=== PATIENT | male | born 1955 | race Caucasian/White ===

== ENCOUNTER 2018-02-19 09:42 | Outpatient (CLI) | payer MEDICAID, SELFPAY ==
--- NOTE | 2018-02-19 09:32 | DI.RAD_ITS ---
SYMPTOMS/DIAGNOSIS: RT SHOULDER PAIN RIGHT SHOULDER: Three views were obtained. There appears to be degenerative deformity of the glenoid and to a lesser degree the humeral head. The cartilaginous joint space not well evaluated on the projections obtained. 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 No other significant findings.
== END 2018-02-19 10:02 ==
PROVIDERS: PCP Emergency Medicine; Visit Provider Physician Assistant
DX: M25.511 Pain in right shoulder (principal); M19.011 Primary osteoarthritis, right shoulder
CPT/HCPCS: 73030

== ENCOUNTER → 2019-12-26 11:22 | Outpatient (BNVA) | payer MEDICARE, SELFPAY | PROVIDERS: PCP Emergency Medicine; Referring Provider Emergency Medicine; Visit Provider Student in an Organized Health Care Education/Training Program | DX: M75.81 Other shoulder lesions, right shoulder (principal) | CPT/HCPCS: 20610; 99213; J1040 ==

== ENCOUNTER 2020-12-14 21:49 | Emergency (ER) | payer MEDICARE, SELFPAY ==
[2020-12-14 21:55] VITALS: BP 168/102; PULSE 81; RESP 22; TEMP 36.7; O2SAT 97
--- NOTE | 2020-12-14 22:30 | DI.RAD_ITS ---
Exam(s) XR HAND LT COMPLETE EXAM: XR HAND LT COMPLETE CLINICAL HISTORY: attention 3,4,5 distal finger, lawnmower. TECHNIQUE: 2D digital imaging was performed. COMPARISON: No exams were available for comparison FINDINGS: BONES: There is an acute comminuted fracture involving the distal phalanx of the left ring finger. T he fracture appears to be intra-articular. There are displaced fracture fragments. There also densi ties in the soft tissues which may represent fracture fragments or foreign bodies. There is associat ed soft tissue swelling. There is a comminuted fracture involving the distal phalanx of the left middle finger with displaced fracture fragments. The fracture does appear to be intra-articular. There is associated soft tissue swelling. No bony destructive lesion is seen. JOINTS: No dislocation present. Degenerative changes are seen in the hand particularly at the interph alangeal joint of the thumb. SOFT TISSUE: There is soft tissue swelling of the 5th finger. IMPRESSION: Fractures involving the distal phalanges of the 3rd and 4th fingers as described. DATA REPOSITORY: RADIATION DOSE DELIVERED:
--- NOTE | 2020-12-14 22:41 | W.ED.GENAD ---
Discharge Plan Disposition Patient Disposition: HOME Condition: Good Discharge Details Clinical Impression: Contact with powered lawnmower as cause of accidental injury, Fracture of phalanx of left ring finger, Fracture of middle phalanx of left index finger, Finger laceration Primary Care Provider: Rocky Dickinson ED Provider: French Garcia Home Meds and New Rx's Prescriptions: New cephalexin 500 mg capsule 500 mg PO QID 7 Days Qty: 28 RF: 0 Continued ibuprofen 200 mg tablet 400 mg PO DAILY PRN RF: 0 terbinafine HCl 1 % cream 1 applic TP BID Qty: 30 RF: 0 amlodipine 5 mg tablet 5 mg PO DAILY 90 Days Qty: 90 RF: 3 lisinopril 10 mg tablet 10 mg PO DAILY Qty: 90 RF: 3 Discharge Instructions Instructions: Finger Fracture (ED), Finger Laceration (ED) Additional Instructions: At this time you have lacerated your fingers, severely damaged the nails, and also broke the ends of the bones in your ring and middle finger. One or both of your nails may fall off. All of the lacerations were sutured with absorbable sutures, and these will fall out on their own. The suture that was used to suture your nail back in place was a nonabsorbable suture and will need to be removed in 7 to 10 days. The tip of skin on your fifth digit will eventually fall off and as you chopped off most of it, however it will function as a good Band-Aid in the time being and allow for growth and rehealing from the inside out. Please take Tylenol and Motrin as needed for pain. Please take the Keflex antibiotic to help prevent infection. A [facility] Please keep the finger splint on at all times to allow for proper healing. You will need to follow-up closely with your primary care provider for reassessment. At this time there is no clear evidence of major nerve or tendon injury however reassessment is needed in the next few days to reevaluate after the swelling has gone down. If you notice any worsening of your symptoms, or any new symptoms such as vomiting, diarrhea, fever, chills, shortness of breath, chest pain, numbness, weakness, or fainting , please return immediately to the emergency department for reevaluation. Please follow up with your primary care provider as soon as possible for reassessment and reevaluation. As always, it was a pleasure participating in your medical care today. Referrals: Rocky Dickinson, DO [Primary Care Provider] - Medical Decision Making 65-year-old male presents today for evaluation of injury to his nondominant left hand. Patient states that he was mowing the lawn this evening, lifted up the mower and unfortunately the blades were still spinning at a high rate of speed. They clipped his fingers. He went home laid down watch some TV felt that he probably needed more definitive management and came to the ER for further assessment. Aside from pain in the tips of all the fingers, he denies any other complaints. Tetanus was last updated in 2018. The left hand demonstrates notable multiple irregular lacerations to the middle finger ring finger of the left hand as well as a tuft laceration to the fifth digit on the left hand. Surprisingly the patient is able to bend extremely well all aspects of the proximal mid and distal phalanges with isolation of each joint. Strength is intact. Sensation is clearly limited and diminished secondary to the notable injury pattern. No bone is visible. The ring finger nail is certainly been ripped out at the base. Middle finger nail appears to be relatively intact. X-ray reveals evidence of fracture of the third and fourth digit. Patient's lacerations were sutured although it was challenging due to the masticated nature of the distal fingertips, in addition to the notable amount of skin that was removed due to the nature of the injury. The nailbed of the third finger appears stable, but the fourth finger nailbed appears to be completely removed. It was reattached with suture. Doing the best with what was left of the fingers I was able to suture much of the skin flaps. The fifth digit demonstrated a notable flap that was cut, and this was resutured, however there is very little vascular supply left. This will function as a bandage, and I suspect this skin component will fall off in the end and heal through secondary intention. Patient's tetanus is up-to-date. Recommended patient follow-up very closely with his primary care provider for reassessment. At this time I see no evidence of tendon damage, as the patient demonstrates good flexion extension with no evidence of deficit, however although there was no sensory deficit noted on initial exam, it was slightly challenging due to the nature of the injury. I do feel that the patient would benefit from reassessment with close follow-up with his PCP. Discussed red flags which to return. We will give Keflex here, and a prescription to his pharmacy. I have extensively reviewed the treatment plan and discharge instructions with the patient. I have addressed all patient concerns at this time. The patient was made aware of what symptoms to monitor for that would warrant a return to the emergency department. Discussed the plan with the patient, they demonstrate verbal understanding and agreement with our assessment and plan at this time. The documentation in this chart was dictated using [employer] dictation software. Please excuse any dictation errors. HPI General Date/Time Provider Initiated Documentation: 12/14/20 21:49. HPI Narrative: 65-year-old male presents today for evaluation of injury to his nondominant left hand. Patient states that he was mowing the lawn this evening, lifted up the mower and unfortunately the blades were still spinning at a high rate of speed. They clipped his fingers. He went home laid down watch some TV felt that he probably needed more definitive management and came to the ER for further assessment. Aside from pain in the tips of all the fingers, he denies any other complaints. Tetanus was last updated in 2018. Related Data Home Medications Medication Instructions Recorded Confirmed ibuprofen 200 mg tablet 400 mg PO DAILY PRN tab 04/02/19 12/14/20 terbinafine HCl 1 % topical cream 1 applic TP BID #30 gm 06/25/20 12/14/20 amlodipine 5 mg tablet 5 mg PO DAILY 90 Days #90 tab-cap 11/20/20 12/14/20 lisinopril 10 mg tablet 10 mg PO DAILY #90 tab 11/20/20 12/14/20 cephalexin 500 mg PO QID 7 Days #28 cap 12/14/20 Previous Rx's Medication Instructions Recorded terbinafine HCl 1 % topical cream 1 applic TP BID #30 gm 06/25/20 amlodipine 5 mg tablet 5 mg PO DAILY 90 Days #90 tab-cap 11/20/20 lisinopril 10 mg tablet 10 mg PO DAILY #90 tab 11/20/20 cephalexin 500 mg PO QID 7 Days #28 cap 12/14/20 Allergies Allergy/AdvReac Type Severity Reaction Status Date / Time No Known Allergies Allergy Verified 12/14/20 22:05 General Stated Complaint: Laceration DESIRE: 3 Review of Systems All systems reviewed & are unremarkable except as noted in HPI and below [facility] Medical History Colon cancer screening Social History Smoking/Tobacco Use Status: Never Smoking risk assessment performed?: Yes Alcohol Intake: current Alcohol Intake frequency: a few times a week Alcohol type: hard liquor Drug use: Daily Substance use type: marijuana Do you feel safe at home: Yes Do you feel safe in your relationship?: Yes Exam Narrative Exam Narrative: 1.Const: Well-nourished, Well-developed, appearing stated age 2.Eyes: PERRL, no conjunctival injection, and symmetrical lids. 3.ENT: Atraumatic external nose and ears. Moist MM. Neck: Symmetric, trachea midline, No thyromegaly. 4.CVS: +S1/S2, No murmurs or gallops. Peripheral pulses 2+ and equal in all extremities. Brisk capillary refill in all extremities. 5.RESP: Unlabored respiratory effort. Clear to auscultation bilaterally. No wheezes rales or rhonchi 6.GI: Soft, Nontender/Nondistended, No hepatosplenomegaly. No guarding or rebound. 7.MSK: Patient's left hand demonstrates notable multiple irregular lacerations to the middle finger ring finger of the left hand as well as a tuft laceration to the fifth digit on the left hand. Surprisingly the patient is able to bend extremely well all aspects of the proximal mid and distal phalanges with isolation of each joint. Strength is intact. Sensation is clearly limited and diminished secondary to the notable injury pattern. No bone is visible. The ring finger nail is certainly been ripped out at the base. Middle finger nail appears to be relatively intact. 8.Skin: Multiple irregular lacerations to the tip of the third and fourth digit on the left hand, as well as a tuft laceration to the fifth digit. 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 Sensation grossly intact, no focal neurologic deficits. 10.Psych: (AAO) x3. Appropriate mood and affect Course Vital Signs Vital signs: Vital Signs Temperature 36.7 C 12/14/20 21:55 Pulse 81 12/14/20 21:55 Respiratory Rate 22 12/14/20 21:55 Blood Pressure 168/102 H 12/14/20 21:55 Pulse Oximetry 97 12/14/20 21:55 Temperature 36.7 C 12/14/20 21:55 Temperature Source Oral 12/14/20 21:55 Pulse 81 12/14/20 21:55 Respiratory Rate 22 12/14/20 21:55 Respiratory Effort Non-Labored 12/14/20 22:04 Blood Pressure 168/102 H 12/14/20 21:55 Blood Pressure Position Sitting 12/14/20 21:55 Pulse Oximetry 97 12/14/20 21:55 Oxygen Delivery Method Room Air 12/14/20 21:55 Oxygen Flow Rate 0 12/14/20 21:55 Pain Level 8 12/14/20 21:55 Procedures Laceration Laceration 1: Site: hand (middle finger) Side (If applicable): left Size (cm): 2 Description: stellate and flap Depth: simple, single layer Local Anesthetic: Lidocaine 1% Amount of anesthesia used (mL): 3 Pre-repair: wound explored, irrigated extensively and deep structures intact Skin layer closed with: other (chromic gut) Size (cm): 5-0 Number of sutures: 2 Technique: simple, interrupted Laceration 2: Site: hand (ring finger) Side (If applicable): left Size (cm): 2 Description: stellate Depth: simple, single layer Local Anesthetic: Lidocaine 1% Amount of anesthesia used (mL): 3 Pre-repair: wound explored and irrigated extensively Skin layer closed with: other (chromic gut) Size (cm): 5-0 Number of sutures: 3 Laceration 3: Site: hand (5th digit) Side (If applicable): left Size (cm): 2 Description: flap Depth: simple, single layer Local Anesthetic: Lidocaine 1% Amount of anesthesia used (mL): 3 Pre-repair: wound explored, irrigated extensively and deep structures intact Skin layer closed with: other (chromic gut) Size (cm): 5-0 Number of sutures: 5 Technique: simple, interrupted
[2020-12-14] MEDS: Cephalexin 500 MG CAP, 4 CAPS/BTL PO (23:25)
--- NOTE | 2020-12-15 00:03 | DI.VRAD_ITS ---
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 Views: 3 or more views. COMPARISON: No relevant prior studies available. FINDINGS: There are mildly comminuted fractures involving the distal phalanges of digits 3 and 4. There are several tiny radiopaque structures are could be bone fragments or foreign bodies. Significant soft tissue trauma noted. The fractures appear to be intra-articular. There is soft tissue swelling related to the 5th digit distally. Degenerative changes are seen worst at the 1st MCP. IMPRESSION: Presumably open fractures involving the 3rd and 4th distal phalanges appear to be intra-articular as well. Dictated and Authenticated by: Armando Cisneros MD. Ordering:ANGELINA Braswell MD
== END 2020-12-14 23:30 | disposition home or self-care (01) ==
PROVIDERS: Emergency Provider Student in an Organized Health Care Education/Training Program; PCP Emergency Medicine
DX: S62.633B Displaced fracture of distal phalanx of left middle finger, initial encounter for open fracture (principal); S62.635B Displaced fracture of distal phalanx of left ring finger, initial encounter for open fracture; W28.XXXA Contact with powered lawn mower, initial encounter
CPT/HCPCS: 12002; 99283; 73130; 99284

== ENCOUNTER → 2020-12-18 08:14 | Outpatient (BNVA) | payer MEDICARE, SELFPAY | PROVIDERS: PCP Emergency Medicine; Referring Provider Emergency Medicine | DX: S62.605A Fracture of unspecified phalanx of left ring finger, initial encounter for closed fracture (principal); S62.621A Displaced fracture of middle phalanx of left index finger, initial encounter for closed fracture; S61.219A Laceration without foreign body of unspecified finger without damage to nail, initial encounter; X58.XXXA Exposure to other specified factors, initial encounter | CPT/HCPCS: 99214 ==

== ENCOUNTER → 2020-12-25 10:27 | Outpatient (BNVA) | payer MEDICARE, SELFPAY | PROVIDERS: PCP Emergency Medicine; Referring Provider Emergency Medicine | DX: S62.635D Displaced fracture of distal phalanx of left ring finger, subsequent encounter for fracture with routine healing (principal); S62.651D Nondisplaced fracture of middle phalanx of left index finger, subsequent encounter for fracture with routine healing; S61.317D Laceration without foreign body of left little finger with damage to nail, subsequent encounter; W28.XXXD Contact with powered lawn mower, subsequent encounter | CPT/HCPCS: 99213 ==

== ENCOUNTER 2021-02-17 18:58 | Emergency (ER) | payer MEDICARE, SELFPAY ==
--- NOTE | 2021-02-17 19:00 | RT.EKG_ITS ---
APPROVED REPORT Exam: Resting ECG Reason for Exam: poisoning Patient Location: E HR:97 bpm ECG Measurements Heart Rate 97 AXIS WV 158 P 38 QRSd 68 QRS 35 QT 338 T 29 QTc 429 Conclusion Sinus rhythm...normal P axis, V-rate 60- 99 Probable left atrial enlargement...P >50mS, <-0.10mV V1
[2021-02-17 19:06] VITALS: BP 144/93; PULSE 102; RESP 22; TEMP 37.1; O2SAT 93
[2021-02-17 19:18] LABS: Abs Immature Grans 0.05 10^3/uL (0.0-0.06); Absolute Basophil Count 0.03 10^3/uL (0.0-0.2); Absolute Lymphocyte Count 1.37 10^3/uL (1.2-3.4); Absolute Neutrophil Count 11.15 10^3/uL (1.2-6.7); Basophils % 0.2; Eosinophils % 0.8; HCT 50.7 % (40.0-50.0); HGB 16.7 g/dL (13.5-17.5); Immature Grans % 0.4; Lymphocytes % 10.3; MCH 30.8 pg (27.0-33.0); MCHC 32.9 % (32.0-36.0); MCV 93.4 fL (80-95); MPV 10.7 fL (8.0-11.0); Monocytes % 4.5; Neutrophils % 83.8; Nucleated RBC 0 %; Platelet Count 198 10^3/uL (130-400); RBC 5.43 10^6/uL (4.36-5.78); RDW 12.1 % (11.8-14.1); RDW-SD 42.1 fL
[2021-02-17] MEDS: Ondansetron 4 MG/2 ML VIAL IVP (19:19)
[2021-02-17 19:21] LABS: Absolute Eosinophil Count 0.11 10^3/uL (0.0-0.7)
[2021-02-17 19:37] LABS: ALT 39 U/L (16-63); AST 27 U/L (15-37); Albumin 4.8 g/dL (3.4-5.0); Alkaline Phosphatase 91 U/L (46-116); Anion Gap 9.6 mmol/L (3-11); BUN 30 mg/dL (7-18); Bilirubin, Total 1.1 mg/dL (0.2-1.0); CO2 29.4 mmol/L (21.0-32.0); CREATININE 1.2 mg/dL (0.70-1.30); Chloride 103 mmol/L (98-107); Glucose 114 mg/dL (74-106); Magnesium 2.4 mg/dL (1.8-2.4); Potassium 3.7 mmol/L (3.5-5.1); Sodium 142 mmol/L (136-145); Total Protein 9.1 g/dL (6.4-8.2); Troponin I < 0.05 ng/mL (<0.06)
[2021-02-17] MEDS: Lactated Ringers 1,000 ML 1000 ML IV (19:49)
--- NOTE | 2021-02-17 19:55 | W.ED.GENAD ---
Discharge Plan Disposition Patient Disposition: AGAINST MEDICAL ADVICE Discharge Details Clinical Impression: Accidental poisoning from mushrooms and other fungi Primary Care Provider: Rocky Dickinson ED Provider: Gerhard Naranjo Home Meds and New Rx's Prescriptions: No Action ibuprofen 200 mg tablet 400 mg PO DAILY PRN RF: 0 amlodipine 5 mg tablet 5 mg PO DAILY 90 Days Qty: 90 RF: 3 lisinopril 10 mg tablet 10 mg PO DAILY Qty: 90 RF: 3 triamcinolone acetonide 0.1 % ointment 1 applic topical DAILY Qty: 80 RF: 0 terbinafine HCl 1 % cream 1 applic TP BID Qty: 30 RF: 0 Discharge Instructions Instructions: Against Medical Advice (ED) Additional Instructions: You are leaving AGAINST MEDICAL ADVICE. You may have life threatening or lifestyle modifying disease that would go undiagnosed and untreated. Please return to the emergency department at any time for further work-up and treatment as recommended. Please follow-up with your doctor. Call to schedule follow-up as soon as possible. Do not eat mushrooms that you find in the words. Only eat store-bought mushrooms. Referrals: Rocky Dickinson, DO [Primary Care Provider] - Medical Decision Making 65-year-old male here with nausea vomiting and loose stool that started about 3 to 4 hours after consuming a mushroom that he had forward in the [place]. Concern for accidental mushroom poisoning. Patient was given IV fluid bolus and Zofran IV. Screening EKG was reviewed and interpreted by me: Please see report, sinus at 97 bpm, probable left atrial enlargement, nondiagnostic. I called and spoke with [facility], discussed ED presentation course, they recommended checking LFTs observing for the next 4 hours and repeating LFTs to see if increase which would be concerning for amanita poisoning. Initial labs reviewed and nondiagnostic. Normal STs. I had a discussion with the patient about my diagnostic/treatment plan. Patient declines plan and wishes to leave against medical advise. I reiterated my concerns to the patient and explained the risks of leaving prior to completion of workup and treatment. I specifically emphasized the possibility of life-threatening or lifestyle modifying disease that would not be appropriately treated if they leave. Patient verbalized understanding of my concerns and the potential for life threatening or lifestyle modifying disease. Patient has capacity to make informed decision. I again explained my concerns and urged the patient to stay for treatment as outlined. Patient continued to refuse. I then discussed potential less ideal alternatives to diagnostic/treatment plan as outlines and patient refused. I recommended that he follow-up with primary care physician LYLE or return to the Emergency Department at any time for further treatment. HPI General Mode of arrival: ambulatory. Date/Time Provider Initiated Documentation: 02/17/21 19:02. Limitations to Documentation: no limitations. Information obtained by: patient. HPI Narrative: 65-year-old male here with nausea and vomiting. Patient notes nausea and vomiting started around 1630. He has had multiple episodes and continues to have nausea. He has also had associated loose stool. Patient notes he consumed a mushroom that he had foraged from the [place] that he thought was a bolitus at around 1300. He now thinks it was a poisonous mushroom. He does not have the much room with him. Related Data Home Medications Medication Instructions Recorded Confirmed ibuprofen 200 mg tablet 400 mg PO DAILY PRN tab 04/02/19 02/17/21 terbinafine HCl 1 % topical cream 1 applic TP BID #30 gm 06/25/20 02/17/21 amlodipine 5 mg tablet 5 mg PO DAILY 90 Days #90 tab-cap 02/17/21 02/17/21 lisinopril 10 mg tablet 10 mg PO DAILY #90 tab 02/17/21 02/17/21 triamcinolone acetonide 0.1 % 1 applic TOPICAL DAILY #80 g 02/17/21 02/17/21 topical ointment Previous Rx's Medication Instructions Recorded terbinafine HCl 1 % topical cream 1 applic TP BID #30 gm 06/25/20 amlodipine 5 mg tablet 5 mg PO DAILY 90 Days #90 tab-cap 02/17/21 lisinopril 10 mg tablet 10 mg PO DAILY #90 tab 02/17/21 triamcinolone acetonide 0.1 % 1 applic TOPICAL DAILY #80 g 02/17/21 topical ointment Allergies Allergy/AdvReac Type Severity Reaction Status Date / Time No Known Allergies Allergy Verified 02/17/21 19:21 General Stated Complaint: Nausea/Vomit/Diar DESIRE: 3 Review of Systems All systems reviewed & are unremarkable except as noted in HPI and below Constitutional Constitutional: Denies fever(s) Gastrointestinal Gastrointestinal: Reports as per HPI [facility] Medical History Colon cancer screening Social History Smoking/Tobacco Use Status: Never Smoking risk assessment performed?: Yes Alcohol Intake: current Alcohol Intake frequency: a few times a week Alcohol type: hard liquor Drug use: Never Substance use type: does not use Do you feel safe at home: Yes Do you feel safe in your relationship?: Yes Exam Const General: cooperative and no acute distress HENMT Mouth: moist mucous membranes Eyes Conjunctivae: normal conjunctivae Sclera: normal sclerae Pupils: PERRL Neck Neck: trachea midline and supple Resp Auscultation: clear to auscultation bilaterally, no rales, no rhonchi and no wheezes Cardio Rate: regular rate and not tachycardic Rhythm: regular rhythm GI Palpation: soft, not firm, no guarding, no masses, not rigid and nontender Skin General skin exam: no rashes or lesions noted Neuro General: patient alert, patient awake, patient oriented x3 and tone normal Extrem General: no edema Psych Appearance: grossly normal Mental Status: mental status grossly normal Course Vital Signs Vital signs: Vital Signs Temperature 37.1 C 02/17/21 19:06 Pulse 102 H 02/17/21 19:06 Respiratory Rate 22 02/17/21 19:06 Blood Pressure 144/93 H 02/17/21 19:06 Pulse Oximetry 93 02/17/21 19:06 Temperature 37.1 C 02/17/21 19:06 Pulse 102 H 02/17/21 19:06 Respiratory Rate 22 02/17/21 19:06 Respiratory Effort 02/17/21 19:09 Blood Pressure 144/93 H 02/17/21 19:06 Blood Pressure Position Sitting 02/17/21 19:06 Pulse Oximetry 93 02/17/21 19:06 Oxygen Delivery Method Room Air 02/17/21 19:06 Oxygen Flow Rate 0 02/17/21 19:06 Pain Level 5 02/17/21 19:06 Lab/Test Results Lab/Test Results: Laboratory Tests Range/Units 02/17/21 02/17/21 19:10 19:10 WBC (4.4-10.8) 10^3/uL 13.30 H RBC (4.36-5.78) 10^6/uL 5.43 Hgb (13.5-17.5) g/dL 16.7 Hct (40.0-50.0) % 50.7 H MCV (80-95) fL 93.4 MCH (27.0-33.0) pg 30.8 MCHC (32.0-36.0) % 32.9 RDW (11.8-14.1) % 12.1 Plt Count (130-400) 10^3/uL 198 MPV (8.0-11.0) fL 10.7 Immature Gran % 0.4 Neutrophils % 83.8 Lymphocytes % 10.3 Monocytes % 4.5 Eosinophils % 0.8 Basophils % 0.2 Nucleated RBC % % 0 Absolute Neutrophils (1.2-6.7) 10^3/uL 11.15 H Absolute Lymphocytes (1.2-3.4) 10^3/uL 1.37 Absolute Monocytes (0.1-0.8) 10^3/uL 0.60 Absolute Eosinophils (0.0-0.7) 10^3/uL 0.11 Absolute Basophils (0.0-0.2) 10^3/uL 0.03 Sodium (136-145) mmol/L 142 Potassium (3.5-5.1) mmol/L 3.7 Chloride (98-107) mmol/L 103 Carbon Dioxide (21.0-32.0) mmol/L 29.4 Anion Gap (3-11) mmol/L 9.6 BUN (7-18) mg/dL 30 H Creatinine (0.70-1.30) mg/dL 1.2 Estimated GFR/1.73 m2 (mL/min/1.73m2) >= 60.00 Glucose (74-106) mg/dL 114 H Calcium (8.5-10.1) mg/dL 10.0 Magnesium (1.8-2.4) mg/dL 2.4 Total Bilirubin (0.2-1.0) mg/dL 1.1 H AST (15-37) U/L 27 ALT (16-63) U/L 39 Alkaline Phosphatase (46-116) U/L 91 Troponin I (<0.06) ng/mL < 0.05 Total Protein (6.4-8.2) g/dL 9.1 H Albumin (3.4-5.0) g/dL 4.8 PAWSS Pt Consumed Any Amount of Alcohol Within the Last 30 days OR had positive AL Upon Admission: No
[2021-02-17 20:25] VITALS: BP 120/84; PULSE 88; RESP 20; TEMP 36.8; O2SAT 98
== END 2021-02-17 20:03 | disposition left against medical advice (07) ==
PROVIDERS: Emergency Provider Student in an Organized Health Care Education/Training Program; PCP Emergency Medicine
DX: T62.0X1A Toxic effect of ingested mushrooms, accidental (unintentional), initial encounter (principal); R11.2 Nausea with vomiting, unspecified; Z53.29 Procedure and treatment not carried out because of patient's decision for other reasons
CPT/HCPCS: 80053; 93005; 96361; 96374; 99284; 83735; 84484; 85025; 93010; 99283; J2405

== ENCOUNTER → 2021-03-05 08:21 | Outpatient (BNVA) | payer MEDICARE, SELFPAY | PROVIDERS: PCP Emergency Medicine; Referring Provider Emergency Medicine; Visit Provider Student in an Organized Health Care Education/Training Program | DX: M75.81 Other shoulder lesions, right shoulder (principal) | CPT/HCPCS: 20610; J1040 ==

== ENCOUNTER 2022-04-02 15:53 | Emergency (ER) | payer MEDICARE, SELFPAY ==
[2022-04-02 15:59] VITALS: BP 127/98; PULSE 108; RESP 16; TEMP 36.6; O2SAT 98
--- NOTE | 2022-04-02 16:00 | DI.RAD_ITS ---
Exam(s) XR FINGER LT LITTLE EXAM: XR FINGER LT LITTLE CLINICAL HISTORY: Laceration, R/O Fracture/Foreign body. TECHNIQUE: 2D digital imaging was performed. COMPARISON: CR,XR XR HAND LT COMPLETE from 12/14/2020 FINDINGS: 3 views There is a mildly displaced predominantly oblique but comminuted fracture of the tuft of the distal p halanx. No radiopaque foreign body. No air in the soft tissues. IMPRESSION: Comminuted tuft fracture of the distal phalanx.. DATA REPOSITORY: RADIATION DOSE DELIVERED:
--- NOTE | 2022-04-02 16:05 | ED.GENADUL_ITS ---
Discharge Plan Disposition Patient Disposition: HOME Condition: Stable Discharge Details Clinical Impression: Open fracture of distal phalanx of left little finger Primary Care Provider: Rodríguez Peck ED Provider: Viviane Hurtado Home Meds and New Rx's Prescriptions: New cephalexin 500 mg tablet 500 mg PO BID 10 Days Qty: 20 0RF No Action ibuprofen 200 mg tablet 400 mg PO DAILY PRN terbinafine HCl 1 % cream 1 applic TP BID Qty: 30 0RF amlodipine 5 mg tablet 5 mg PO DAILY 90 Days Qty: 90 2RF lisinopril 10 mg tablet 10 mg PO DAILY Qty: 90 2RF triamcinolone acetonide 0.1 % ointment 1 applic topical DAILY Qty: 80 0RF Rx Instructions: to affected area Discharge Instructions Instructions: Laceration (ED), Finger Fracture (ED) Additional Instructions: Please leave dressing on for the first 12 to 24 hours. You may wash under running soap and water in the shower once a day after that. Keep clean and dry. Allow to air dry at least 2 hours a day. Take the antibiotic twice daily with yogurt or probiotic as directed. Please follow-up with orthopedics to discuss the further treatment of the fracture of your finger. Please return sooner for any signs of infection including red streaks, drainage, swelling or any concerns. Please have the sutures removed in 7 to 10 days. Please take Tylenol or Ibuprofen with food every 4-6 hours as needed for pain and swelling. Referrals: Otilio Rodríguez MD [ [facility]YSICIAN] - 1 week Medical Decision Making 67-year-old male presents to the ER with chief complaint of left little finger laceration which occurred prior to arrival. Patient was using some cutting he has a laceration noted to the distal part of his pinky. It extends through his nail and nail bed around to the volar surface of digit. Bleeding is controlled with pressure. He does have distal sensation intact. 4 sided ring block performed 1% lidocaine with epi. Anesthesia achieved. Wound care provided by director of midwifery/staff midwife. X-ray ordered to rule out fracture versus foreign body. Will consider antibiotics due to the depth of the laceration and the mechanism. X-ray shows a distal tuft fracture, laceration is through the nail and the nail bed. 6 simple interrupted sutures placed. Patient was placed in a Xeroform gauze, tube dressing and aluminum splint. Instructed to follow-up with orthopedics. Discussed strict return instructions and signs of infection. There was some bleeding through the gauze prior to discharge Coban and pressure dressing applied. Bleeding controlled prior to discharge. Patient was given cephalexin 500 mg twice daily x10 days first dose given here in the department. This text was generated using [employer] dictation system, please disregard any oddities of phrase or misspellings. Imaging Data Radiologic Study: Imaging: X-Ray Radiologist's impression: FINDINGS: 3 views There is a mildly displaced predominantly oblique but comminuted fracture of the tuft of the distal phalanx. No radiopaque foreign body. No air in the soft tissues. IMPRESSION: Comminuted tuft fracture of the distal phalanx.. HPI General Mode of arrival: ambulatory . Date/Time Provider Initiated Documentation: 04/02/22 15:57 . Limitations to Documentation: no limitations . Information obtained by: patient, RN notes reviewed and old records reviewed . HPI Narrative: 67-year-old male presents to the ER with chief complaint of left little finger laceration which occurred prior to arrival. Patient was using some cutting he has a laceration noted to the distal part of his pinky. It extends through his nail and nail bed around to the volar surface of digit. Bleeding is controlled with pressure. He does have distal sensation intact. Last tetanus was 2017. He has no other complaints. Related Data Home Medications Medication Instructions Recorded Confirmed ibuprofen 200 mg tablet 400 mg PO DAILY PRN 04/02/19 04/02/22 triamcinolone acetonide 0.1 % 1 applic topical DAILY #80 grams 01/05/22 04/02/22 topical ointment amlodipine 5 mg tablet 5 mg PO DAILY 90 days #90 tab-caps 03/03/22 04/02/22 lisinopril 10 mg tablet 10 mg PO DAILY #90 tabs 03/03/22 04/02/22 terbinafine HCl 1 % topical cream 1 applic topical BID #30 grams 03/03/22 1 06/02/21 cephalexin 500 mg tablet 500 mg PO BID 10 days #20 tabs 04/02/22 Previous Rx's Medication Instructions Recorded triamcinolone acetonide 0.1 % 1 applic topical DAILY #80 grams 01/05/22 topical ointment amlodipine 5 mg tablet 5 mg PO DAILY 90 days #90 tab-caps 03/03/22 lisinopril 10 mg tablet 10 mg PO DAILY #90 tabs 03/03/22 terbinafine HCl 1 % topical cream 1 applic topical BID #30 grams 03/03/22 cephalexin 500 mg tablet 500 mg PO BID 10 days #20 tabs 04/02/22 Allergies Allergy/AdvReac Type Severity Reaction Status Date / Time No Known Allergies Allergy Verified 04/02/22 16:03 General Stated Complaint: Laceration DESIRE: 4 Review of Systems Integumentary/Breasts Skin/Breast: Reports as per HPI and Reports wounds PFSH All Active Problems (Updated 04/02/22 @ 17:13 by Viviane Hurtado NP) Open fracture of distal phalanx of left little finger (Acute) Accidental poisoning from mushrooms and other fungi (Acute) Screening for viral disease (Acute) Contact with powered lawnmower as cause of accidental injury (Acute) Fracture of phalanx of left ring finger (Acute) Fracture of middle phalanx of left index finger (Acute) Finger laceration (Acute) Colon cancer screening (Acute) Right rotator cuff tendinitis (Acute) DJD of right shoulder (Chronic) Vitiligo (Acute 12/03/13) HTN (hypertension) (Acute 09/27/17) Essential hypertension (Acute 10/09/17) Deafness in left ear (Acute 12/03/13) Chronic pain of both knees (Acute 02/01/17) Chondrocalcinosis of left knee (Acute 04/10/17) Chondrocalcinosis of right knee (Acute 02/01/17) Adopted (Acute 12/03/13) Social History Smoking/Tobacco Use Status: Never Smoking risk assessment performed?: Yes Alcohol Intake: current Alcohol Intake frequency: a few times a week Alcohol type: hard liquor Drug use: Never Substance use type: does not use Do you feel safe at home: Yes Do you feel safe in your relationship?: Yes Exam Extrem Left upper extremity: hand Details: laceration 5th digit distal Details: irregular, actively bleeding, involving subcutaneous tissue, with motor nerve function intact and with sensation intact Hand/finger images: 1. Laceration 2. Laceration Course Vital Signs Vital signs: Vital Signs Temperature 36.6 C 04/02/22 15:59 Pulse 108 H 11/12/22 15:59 Respiratory Rate 16 04/02/22 15:59 Blood Pressure 127/98 H 04/02/22 15:59 Pulse Oximetry 98 04/02/22 15:59 Temperature 36.6 C 04/02/22 15:59 Temperature Source Temporal Artery Scan 04/02/22 15:59 Pulse 108 H 04/02/22 15:59 Respiratory Rate 16 04/02/22 15:59 Respiratory Effort Non-Labored 04/02/22 16:01 Blood Pressure 127/98 H 04/02/22 15:59 Blood Pressure Position Sitting 04/02/22 15:59 Pulse Oximetry 98 04/02/22 15:59 Oxygen Delivery Method Room Air 04/02/22 15:59 Oxygen Flow Rate 0 04/02/22 15:59 Pain Level 2 04/02/22 15:59 Procedures Laceration Laceration 1: Site: hand (5th digit) Side (If applicable): left Size (cm): 2 Description: linear and other (Partial amputation of left 5th distal digit) Depth: [id number] Local Anesthetic: Lidocaine 1% and with Epi Pre-repair: wound explored and irrigated extensively Skin layer closed with: nylon Size (cm): 4-0 Number of sutures: 6 Technique: simple, interrupted Nerve Block Nerve Block 1: Time out performed: No Local Anesthetic: Lidocaine 1% and with Epi Amount of anesthesia used (mL): 4 Side: left Nerve Blocks: digital (4 sided ring block) Procedure Successful: Yes Patient Tolerated Procedure: well and no complications Complications: none PAWSS Have you Been Recently Intoxicated or Drunk Within the Last 30 days?: No Have you Ever Experienced Previous Episodes of Alcohol Withdrawal?: No Have you ever Experienced Withdrawal Seizures?: No Have you ever Experienced Delirium Tremens(DT)s?: No Have you ever undergone Alcohol Rehabilitation Treatment (i.e, inpt ot outpatient treatment programs)?: No Have you ever Experienced Blackouts?: No Have you ever Combined Alcohol with other Downers within the last 90 days?: No Have you ever Combined Alcohol with any other Substance of Abuse during the last 90 days?: No Positive Blood Alcohol level on Presentation? [PCS.BAL]: No Evidence of Increased Autonomic Activity (i.e. HR>120, tremor, sweating, agitati on, nausea)?: No Result: 0
[2022-04-02] MEDS: Lidocaine 1.5 % Pres-Free W/EPI 1/200,000 30 ML VIAL (16:11)
[2022-04-02] MEDS: Cephalexin 500 MG CAP PO (17:07)
--- NOTE | 2022-04-02 17:15 | DI.VRAD_ITS ---
PROCEDURE INFORMATION: Exam: XR Left Finger(s) Exam date and time: 04/02/2022 4:44 PM Age: 67 years old Clinical indication: Injury or trauma; Left; Little finger; Injury details: Laceration, R/O fracture/foreign body TECHNIQUE: Imaging protocol: Radiologic exam of the Left fingers. Views: Minimum 2 views. Total images: 3 COMPARISON: CR XR HAND LT COMPLETE 12/14/2020 10:41 PM FINDINGS: Bones/joints: There is an obliquely oriented fracture through the tuft of the distal phalanx of the 5th digit. There is up to 2 mm of diastasis. No dislocation. There is mild multi digit DIP joint osteoarthritis. Arthritic change involving the 1st metacarpal phalangeal and IP joints. Well circumscribed cyst within the capitate bone. Soft tissues: There is no opaque foreign body. No soft tissue gas. IMPRESSION: 1. 5th digit distal phalangeal tuft fracture. 2. No opaque foreign body. Dictated and Authenticated by: Jenaro Chan MD. Ordering:CAROLINA Pan MD
== END 2022-04-02 17:19 | disposition home or self-care (01) ==
PROVIDERS: Emergency Provider Registered Nurse Emergency; PCP Nurse Practitioner Family
DX: S62.637B Displaced fracture of distal phalanx of left little finger, initial encounter for open fracture (principal); W26.8XXA Contact with other sharp object(s), not elsewhere classified, initial encounter
CPT/HCPCS: 12001; 29130; 99283; 73140

== ENCOUNTER → 2022-04-07 08:05 | Outpatient (BNVA) | payer MEDICARE, SELFPAY | PROVIDERS: PCP Nurse Practitioner Family; Referring Provider Nurse Practitioner Family; Visit Provider Student in an Organized Health Care Education/Training Program | DX: W26.8XXA Contact with other sharp object(s), not elsewhere classified, initial encounter (principal); S62.637B Displaced fracture of distal phalanx of left little finger, initial encounter for open fracture | CPT/HCPCS: 99213 ==

== ENCOUNTER 2022-12-06 15:58 | Outpatient (CLI) | payer MEDICARE, SELFPAY ==
[2022-12-06 15:46] LABS: CREATININE 0.8 mg/dL (0.70-1.30); Potassium 3.9 mmol/L (3.5-5.1)
== END 2022-12-06 15:59 | disposition home or self-care (01) ==
LOC: LBO 15:59
PROVIDERS: PCP Nurse Practitioner Family; Visit Provider Nurse Practitioner Family
DX: I10 Essential (primary) hypertension (principal)
CPT/HCPCS: 36415; 82565; 84132